=== PATIENT | female | born 1960 | race Caucasian/White ===

== ENCOUNTER 2017-01-02 21:22 | Inpatient (IN) | payer MEDICARE ==
[~2017-01-02 21:22] MED LIST: ADVIL200 M2 PO; ALPRAZOLAM0.5 M3 PO; AMBIEN10 MG PO; ANUSOL-HC25 MG RC; BENADRYL25 MG PO; COMPAZINE5 M2 PO; FLEXERIL10 MG PO; HYDROCODON-ACE1 EA16 PO; HYDROCODONE/APA1 CAP PO; PRILOSEC20 M1 PO; PROZAC20 M1 PO; PROZAC20 M3 PO; SINEMET PO; TOPAMAX100 M2 PO; TRAZODONE HCL50 M1 PO; VICODIN 5/500 T1 TAB PO
[2017-01-02] MEDS ORDERED: OMEPRAZOLE20 M3 PO (23:22)
[2017-01-02] MEDS ORDERED: TRAZODONE HCL50 M1 PO (23:26)
[2017-01-02] MEDS ORDERED: IMITREX100 M2 (23:28)
[2017-01-02] MEDS ORDERED: ATIVAN0.5 M1 PO (23:32)
[2017-01-02] MEDS ORDERED: CYANOCOBAL1000 MCG/3 SC (23:34)
[2017-01-02 23:35] LABS: URINE BILIRUBIN NEGATIVE (NEG); URINE BLOOD NEGATIVE (NEG); URINE GLUCOSE (UA) NEGATIVE (NEG); URINE KETONE NEGATIVE (NEG); URINE LEUKOCYTE ESTERASE NEGATIVE (NEG); URINE NITRITE NEGATIVE (NEG); URINE PROTEIN NEGATIVE (NEG); URINE SPECIFIC GRAVITY 1.005 (1.003-1.030)
[2017-01-02] MEDS ORDERED: FOLIC ACID1 M1 PO (23:35)
[2017-01-02] MEDS ORDERED: ASPIRIN325 M3 PO (23:36)
[2017-01-02 23:37] LABS: URINE APPEARANCE CLEAR; URINE COLOR YELLOW
[2017-01-02] MEDS ORDERED: POLYETHYLENE G255 G1 PO (23:37)
[2017-01-03 00:01] LABS: IRON 50 ug/dl (37-170); IRON BINDING CAPACITY 202 ug/dl (250-450)
[2017-01-03 00:12] LABS: FERRITIN 37 ng/ml (8-250)
[2017-01-03 01:13] LABS: PROLACTIN 13 ng/ml
[2017-01-03 05:32] LABS: BASO % 0.6 % (0-2); EOS % 1.7 % (0-7); EOSINOPHIL ABSOLUTE COUNT 0.1 tho/cmm (0.0-0.7); HCT-HEMATOCRIT 30.1 % (34.0-49.0); HGB-HEMOGLOBIN 9.4 gm/dl (12.0-15.5); LYMPH % 24.1 % (20-45); LYMPH ABSOLUTE COUNT 0.8 tho/cmm (0.8-4.5); MCH (MEAN CORPUSCULAR HGB) 28.6 pg (28.0-32.0); MCHC MEAN CORPUSCULAR HGB CONC 31.2 % (32.0-36.0); MCV (MEAN CELL VOLUME) 91.5 fl (82.0-96.0); MEAN PLATELET VOLUME 10.2 cmc (9.4-12.4); MONO % 4.9 % (0-12); MONOCYTE ABSOLUTE COUNT 0.2 tho/cmm (0.0-1.2); NEUTROPHIL ABSOLUTE COUNT 2.4 tho/cmm (1.6-8.0); NEUTROPHIL-AUTOMATED 2.4 tho/cmm (1.6-8.0); NEUTROPHILS % 68.7 % (40-80); PLATELET COUNT 124 tho/cmm (150-450); RED BLOOD COUNT 3.29 mil/cmm (4.00-5.20); WHITE BLOOD COUNT 3.4 tho/cmm (4.0-10.0)
[2017-01-03 06:05] LABS: ANION GAP 10 mmol/L (0-20); BLOOD UREA NITROGEN 9 mg/dl (6-24); CALCIUM 7.7 mg/dl (8.5-10.5); CARBON DIOXIDE-VENOUS 23 mmol/L (22-32); CHLORIDE 114 mmol/l (96-110); CREATININE 0.89 mg/dl (0.50-1.10); GLUCOSE 85 mg/dL (70-110); POTASSIUM 3.6 mmol/L (3.7-5.1); SODIUM 143 mmol/L (135-145); eGFR VALUE FOR BLACK 83 mL/Min
[2017-01-03 15:00] LABS: ALB/GLOB RATIO 1.1 (0.8-2.0); ALBUMIN 3.3 g/dl (3.5-5.0); ALKALINE PHOSPHATASE 96 U/L (33-138); ALT/SGPT 16 U/L (12-78); AST/SGOT 16 U/L (10-40); BILIRUBIN,DIRECT <0.1 mg/dl (0.0-0.3); BILIRUBIN,INDIRECT 0.1 mg/dL (0.0-1.0); BILIRUBIN,TOTAL 0.2 mg/dl (0-1.5)
[2017-01-04 05:28] LABS: BASO % 0.5 % (0-2); EOS % 2.5 % (0-7); EOSINOPHIL ABSOLUTE COUNT 0.1 tho/cmm (0.0-0.7); HCT-HEMATOCRIT 30.1 % (34.0-49.0); HGB-HEMOGLOBIN 9.7 gm/dl (12.0-15.5); LYMPH % 41.4 % (20-45); LYMPH ABSOLUTE COUNT 0.8 tho/cmm (0.8-4.5); MCH (MEAN CORPUSCULAR HGB) 29.2 pg (28.0-32.0); MCHC MEAN CORPUSCULAR HGB CONC 32.2 % (32.0-36.0); MCV (MEAN CELL VOLUME) 90.7 fl (82.0-96.0); MONO % 5.4 % (0-12); MONOCYTE ABSOLUTE COUNT 0.1 tho/cmm (0.0-1.2); NEUTROPHILS % 50.2 % (40-80); PLATELET COUNT 127 tho/cmm (150-450); RED BLOOD COUNT 3.32 mil/cmm (4.00-5.20); RED CELL DISTRIBUTION WIDTH 13.9 % (12.4-16.4)
[2017-01-04 05:35] LABS: ANION GAP 10 mmol/L (0-20); BLOOD UREA NITROGEN 10 mg/dl (6-24); CALCIUM 7.9 mg/dl (8.5-10.5); CARBON DIOXIDE-VENOUS 22 mmol/L (22-32); CHLORIDE 115 mmol/l (96-110); CREATININE 0.89 mg/dl (0.50-1.10); GLUCOSE 84 mg/dL (70-110); POTASSIUM 3.8 mmol/L (3.7-5.1); SODIUM 143 mmol/L (135-145); eGFR VALUE FOR BLACK 83 mL/Min
[2017-01-04] MEDS ORDERED: FEOSOL325 M1 PO (17:10)
[2017-01-04] MEDS ORDERED: KEPPRA500 M3 PO (17:16)
== END 2017-01-04 18:19 | DRG 100 ==
LOC: EMR2 21:22 → PCUB 21:30
PROVIDERS: Internal Medicine; Psychiatry & Neurology Neurology; ADMIT Internal Medicine
DX: G40.409 Other generalized epilepsy and epileptic syndromes, not intractable, without status epilepticus (principal); E43 Unspecified severe protein-calorie malnutrition; D61.818 Other pancytopenia; R55 Syncope and collapse; F32.9 Major depressive disorder, single episode, unspecified; E87.6 Hypokalemia; D63.8 Anemia in other chronic diseases classified elsewhere; K21.9 Gastro-esophageal reflux disease without esophagitis; E83.51 Hypocalcemia; Z72.0 Tobacco use
CPT/HCPCS: C8929; G8978-GP-CI; G8979-GP-CH; G8980-GP-CI; G8987-GO-CI; G8988-GO-CH; G8989-GO-CI; J1953; J7030